=== PATIENT | male | born 1955 | race Caucasian/White ===

== ENCOUNTER 2020-05-05 10:43 | Observation (INO) ==
[2020-05-05] MEDS ORDERED: IOPAMIDOL 100 ML BOTTLE IV ONE (10:44)
[2020-05-05] MEDS ORDERED: 0.9 % SODIUM CHLORIDE 1,000 ML IV ONE (11:05)
[2020-05-05] MEDS ORDERED: HYDROmorphone 0.5 MG/0.5 ML SYRINGE IV ONE ×2 (11:05→12:36)
--- NOTE | 2020-05-05 11:12 | Emergency Department Note ---
Abdominal Pain HPI General Chief Complaint: Abdominal Pain Stated Complaint: stomach pain diarrhea Time Seen by Provider: 05/05/20 10:49 Source: patient Mode of arrival: ambulatory Limitations: no limitations History of Present Illness HPI Narrative: Narrative: 64-year-old male patient presents to the emergency dep artment chief complaint of worsening abdominal pain and persistent diarrhea. Patient was seen by the general surgeon (Dr. Bai) on 04/12 and diagnosed with postcholecystectomy syndrome. He was started on dicyclomine 20 mg 4 times daily. Unfortunately, patient mentions this is been unhelpful. His abdominal pain has waxed and waned but steadily increased over the last 48 hours. That he describes the pain as a sharp, stabbing type pain localized around his umbilicus. He admits to frequent nonbloody very watery diarrhea. He denies any associated nausea or vomiting. He denies any known exposure to the novel coronavirus. ROS: Denies systemic illness, fever, sweats, chills. Denies headaches, tinnitus, or vision changes. Denies runny nose, sinus congestion, or cough. Admits to mild shortness of breath that he associates with daily smoking.. Denies retrosternal chest pain or palpitations. Denies dysuria, hematuria, urinary frequency, or urinary urgency. Denies generalized or focal weakness. Related Data Home Medications Medication Instructions Recorded Confirmed calcium carbonate-vitamin D3 600 1 cap PO BID cap 12/11/14 05/05/20 mg calcium-200 unit capsule aspirin 81 mg tablet,delayed 81 mg PO QDAY 09/21/19 05/05/20 release Previous Rx's Medication Instructions Recorded simvastatin 20 mg tablet 20 mg PO HS #90 tab 08/02/19 testosterone cypionate 200 mg/mL 200 mg IM .COMPLEX #1 ml 08/18/19 intramuscular oil omeprazole magnesium 20 mg 20 mg PO QDAY #90 cap 10/11/19 capsule,delayed release levothyroxine 100 mcg tablet 100 mcg PO QDAY #30 tab 11/18/19 lisinopril 10 mg tablet 10 mg PO DAILY #90 tab 01/09/20 metformin 500 mg tablet 500 mg PO QDAY #90 tab 02/08/20 duloxetine 60 mg capsule,delayed 60 mg PO QAM #30 cap 03/12/20 release hydrocodone 5 mg-acetaminophen 325 1 tab PO Q8H PRN #20 tab MDD 2 10/27/20 mg tablet dicyclomine 20 mg tablet 20 mg PO QID #120 tab 04/12/20 Allergies Allergy/AdvReac Type Severity Reaction Status Date / Time aspirin AdvReac Severe Gastrointestinal Verified 05/01/20 10:09 Upset hydrochlorothiazide AdvReac Mild Fatigued Verified 05/01/20 10:09 morphine [From MS Contin] AdvReac Mild Itching Verified 05/01/20 10:09 Review of Systems ROS ROS Narrative: Narrative: All systems ED: reviewed and negative except as stated. 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) use of opiate analgesic (Chronic) Spondylosis without myelopathy or radiculopathy, lumbar region (Chronic) Chronic SI joint pain (Chronic) Depression determined by examination (Acute) Insomnia (Acute) Cellulitis (Acute) Cervical spondylosis (Acute) Cervical spine degeneration (Acute) COPD exacerbation (Acute) Opioid withdrawal (Acute) Thoracic back pain (Acute) Lumbar radiculopathy (Acute) Cholelithiasis with cholecystitis without obstruction (Acute) Back pain (Acute) Strain of lumbar region (Acute) Partial small bowel obstruction (Acute) Cholelithiasis (Acute) Chronic pain (Chronic) Toenail fungus (Chronic) Vitamin D deficiency (Chronic) Borderline diabetes mellitus (Chronic) Encounter for Health Maintenance Examination in Adult (Chronic) Varicose veins of lower extremity (Chronic) Urinary frequency (Chronic) Tobacco abuse (Chronic) Tinnitus (Chronic) Testicular hypofunction (Chronic) Osteoporosis (Chronic) Obesity (Chronic) Hypothyroidism (acquired) (Chronic) Essential hypertension (Chronic) Hyperlipidemia (Chronic) Umbilical hernia (Chronic) Hearing loss (Chronic) Esophageal reflux (Chronic) ED (erectile dysfunction) (Chronic) Depressive disorder (Chronic) Chronic back pain (Chronic) Benign prostatic hyperplasia (BPH) with urinary urgency (Chronic) Anxiety disorder (Chronic) Medical History Abdominal pain (Resolved) Anxiety disorder (Chronic) Axillary mass (Acute) Benign prostatic hyperplasia (BPH) with urinary urgency (Chronic) follows with Dr Rowell on medical management with tamsulosin and tadalafil Borderline diabetes mellitus (Chronic) Cellulitis of abdominal wall (Inactive) treat with bactrim and keflex x 10 days Chronic back pain (Chronic) follows with pain clinic. Maintained on Methadone and Oxycodone Chronic SI joint pain (Chronic) Depressive disorder (Chronic) Dermatitis (Inactive) ED (erectile dysfunction) (Chronic) Edema (Resolved) 02/12/2011 Encounter for Health Maintenance Examination in Adult (Chronic) [facility] Colonoscopy 2014, no polyps tdap 06/2015 pcv not indicated yet aaa not indicated yet psa needs annually, neg 2015 Epicondylitis (Inactive) Esophageal reflux (Chronic) Continue omeprazole 20 mg daily Essential hypertension (Chronic) 10/23/16 BP stable, continue lisinopril Fatigue (Resolved) 11/13/2014, labs neg, pt doing better now. Plan to monitor for now. Gastric ulcer (Inactive) 1991 - Hospitalized due to bleeding ulcer Hearing loss (Chronic) Hyperlipidemia (Chronic) Lipid levels at goal, HDL low, Continue fenofibrate and simvastatin Recheck lipid panel Every 6 months Hyperthyroidism (Inactive) History of 2002 - Iodine therapy Hypothyroidism (acquired) (Chronic) on levothyroxine 200 mcg continue same, patient is clinically euthyroid. 10/23/16 Recheck TSH today Knee pain (Inactive) 05/09/2014 half-way (current) use of opiate analgesic (Chronic) Lumbar spondylosis (Chronic) 07/10/2015-Lanie Obesity (Chronic) Osteoporosis (Chronic) Paget's bone disease (Acute) low back pain Prostatitis, acute (Inactive) 07/22/2013 Small bowel obstruction (Resolved) 03/2018 Spondylosis without myelopathy or radiculopathy, lumbar region (Chronic) Spondylosis without myelopathy or radiculopathy, lumbosacral region (Acute) Tear of lateral cartilage or meniscus of knee, current (Inactive) Testicular hypofunction (Chronic) testosterone inj, 200 mg IM q month, continue Thyroid disorder (Chronic) Tinnitus (Chronic) Tobacco abuse (Chronic) Patient to start on Chantix 07/25/16 08/23/16 pt unable to tolerate chantix, stopped it counselled on smoking cessation 3-5 minutes Toenail fungus (Chronic) Umbilical hernia (Chronic) Urinary frequency (Chronic) 05/16/2014 Varicose veins of lower extremity (Chronic) 01/23/2014 - Asymptomatic Vitamin D deficiency (Chronic) Surgical History History of colonoscopy (Inactive) 08/30/2014 History of inguinal hernia repair (Inactive) 01/09/2012 - Dr. Borges History of laparoscopic cholecystectomy (Acute) 09/17/2018 History of lumbar surgery (Inactive) History of surgery (Acute) MBB #1 Bilat L2-S1 w/sed 02/23/20 SI Joint Inj. Alcides. w/sed 02/06/2020 Intradiscal injection L4-5 w/sed (07/04/10) LESI #2 L4-5 w/sed (06-10-10) TF DAVID #1 (RT) L4-5 w/sed (05-23-10 Family History Unknown Family history of malignant neoplasm Social History Smoking Status: Current some day smoker Alcohol Intake Frequency: former alcohol drinker Substance Use: does not use Exam Narrative Narrative: Narrative: General Limitations: no limitations General appearance: Present other (Well-developed, well-nourished, 64-year-old male patient laying semirecumbent on the emergency room gurney obviously very uncomfortable. He is cradling his abdomen his hands. He is afebrile with, hypertensive blood pressure 142/101, all other vital signs the normal limits.) Head Head: Present normocephalic Eye Eye: Present normal appearance, PERRL and EOMI; Absent scleral icterus and conjunctival injection ENT ENT: Present normal oropharynx and mucous membranes moist Neck Neck: Present trachea midline; Absent lymphadenopathy Chest Chest: Present symmetric chest wall rise Respiratory Respiratory: Present normal lung sounds bilaterally; Absent respiratory distress, wheezes, stridor, accessory muscle use and prolonged expiratory phase Cardiovascular Cardiovascular: Present regular rate and normal rhythm; Absent systolic murmur and diastolic murmur Adbominal Abdominal: Present soft, tenderness and hyperactive bowel sounds; Absent distention, guarding, rebound, rigidity, organomegaly and mass Expanded Abdominal Abdominal Tenderness: Present diffuse and severe Extremities Extremities: Present normal inspection, full ROM and normal capillary refill; Absent pedal edema Back Back: Present normal inspection and full ROM; Absent CVA tenderness (R) and CVA tenderness (L) Neurological Neurological: Present alert and oriented X3 Psychiatric Psychiatric: Present normal affect and anxious Skin Skin: Present warm (WNL), dry and normal color Course Course Course Narrative: The differential diagnosis of diffuse abdominal pain in the adult patient is broad and includes the following: Bowel obstruction, perforation of the GI tract, acute/chronic mesenteric ischemia, abdominal aortic aneurysm (AAA), inflammatory bowel disease (ulcerative colitis/Crohn disease), viral gastroenteritis, spontaneous bacterial peritonitis, colorectal cancer, celiac disease, ketoacidosis, adrenal insufficiency, foodborne illness, IBS, constipation, diverticulosis, and lactose intolerance. Patient does have known history of abdominal pain and is recently been followed by our general surgeon (Dr. Bai). He was recently diagnosed with p ostcholecystectomy syndrome and started on dicyclomine. However, this has been ineffective in controlling his symptoms. He has had recurrent abdominal pain with the last 48 hours which is is exquisite and severe. He did have a CT scan of his abdomen done at the end of March that was read as normal. However, due to his recurrent symptoms and physical exam findings it seems prudent to reimage his abdomen with a contrast-enhanced CT scan today. I am going to order some screening laboratory studies. Patient was given Dilaudid 0.5 mg IVP to help with his abdominal pain. He was given normal saline 1000 mL as a bolus. Reevaluation(s) Reevaluation #1: A review of the patient's diagnostics show the following: CBC WBC 8.2, RBC 5.75, hemoglobin 18.9, hematocrit 53.5, platelets 205. Lactic acid 1.3. CMP glucose 121, all others the normal limits. Lipase 9. Abdominal CT scan pending. Upon reevaluation patient began to complain of worsening recurrent abdominal pain. He was given a second Dilaudid 0.5 mg IVP to help with this. Time: 13:00 Reevaluation #2: Contrast-enhanced CT scan of the abdomen/pelvis along a partial small bowel obstruction to the mid ileum due to adhesion or stricture. Radiologist mentions sigmoid diverticulosis but no evidence of diverticulitis. There is a 19 mm simple cyst at the superior pole the right kidney. There is moderate pancreatic atrophy with fat replacement of the head, neck, and proximal body. After reviewing all the data and I went discussed these findings the patient. He does have a partial small bowel obstruction that will need further treatment. Knowing this, I reached out to her general surgeon (Dr. Bai) discussed the case with him. Time: 13:32 Reevaluation #3: At this time the general surgeon mentioned that he would admit the patient here to the facility for ongoing evaluation and care. Knowing this, I went discussed the admission with the patient who verbalized understanding. At this time all further treatment decisions, modalities, and ultimate patient disposition will be carried out by the general surgeon. Vital Signs Vital signs: Vital Signs Temperature 97.9 F 05/05/20 10:46 Pulse Rate 90 05/05/20 10:46 Respiratory Rate 20 05/05/20 10:46 Blood Pressure 142/101 05/05/20 10:46 Pulse Oximetry (%) 98 05/05/20 10:46 Temperature 97.9 F 05/05/20 10:46 Pulse Rate 65 05/05/20 13:31 Respiratory Rate 20 05/05/20 10:46 Blood Pressure 158/101 05/05/20 13:31 Pulse Oximetry (%) 98 05/05/20 13:31 MDM MDM Narrative Medical decision making narrative: Narrative: Lab Data Lab results reviewed: Yes I reviewed the patient's lab results. Result diagrams: 05/05/20 11:21 05/05/20 11:21 Labs: Lab Results 05/05/20 05/05/20 05/05/20 Range/Units 11:21 11:21 11:21 WBC 8.2 (4.5-11.0) K/mcL RBC 5.75 (4.50-5.90) M/mcL Hgb 18.9 H (13.5-16.5) g/dL Hct 53.5 (41.0-55.0) % MCV 93.0 (80.0-100.0) fL MCH 32.9 (26.0-34.0) pg MCHC 35.3 (31.0-36.0) g/dL RDW 15.6 H (11.5-14.5) % Plt Count 205 (140-440) K/mcL MPV 10.3 (7.4-10.4) fL Neut % (Auto) 68.9 (38.0-78.0) % Lymph % (Auto) 19.7 (15.0-49.0) % [place] % (Auto) 8.4 (1.0-12.0) % Eos % (Auto) 2.4 (0.0-7.0) % Baso % (Auto) 0.6 (0.0-2.0) % Lymph # (Auto) 1.62 (1.50-4.80) K/mcL [place] # (Auto) 0.69 (0.10-0.90) K/mcL Eos # (Auto) 0.20 (0.00-0.70) K/mcL Baso # (Auto) 0.05 (0.00-0.20) K/mcL Absolute Neutrophils 5.67 (1.80-8.00) K/mcL VBG Lactic Acid 1.3 (0.5-2.0) mmol/L Sodium 137 (133-145) mmol/L Potassium 3.9 (3.3-5.1) mmol/L Chloride 103 (96-108) mmol/L Carbon Dioxide 22 (22-30) mmol/L Anion Gap 12.0 (8.0-16.0) BUN 13 (8-23) mg/dL Creatinine 0.8 (0.7-1.2) mg/dL POC Creatinine 0.8 (0.6-1.2) mg/dL GFR Calculation 93 Glucose 121 H (70-105) mg/dL Calcium 9.9 (8.6-10.4) mg/dL Total Bilirubin 0.5 (0.1-1.0) mg/dL AST 25 (<40) U/L ALT 24 (<40) U/L Alkaline Phosphatase 67 (39-117) U/L C-Reactive Protein (0.03-0.80) mg/dL Total Protein 7.3 (5.9-8.4) gm/dL Albumin 4.6 (3.2-5.2) gm/dL Globulin 2.7 (2.2-3.7) gm/dL Albumin/Globulin Ratio 1.7 (1.0-2.3) Lipase 9 (7-60) U/L 11/21/20 Range/Units 11:21 WBC (4.5-11.0) K/mcL RBC (4.50-5.90) M/mcL Hgb (13.5-16.5) g/dL Hct (41.0-55.0) % MCV (80.0-100.0) fL MCH (26.0-34.0) pg MCHC (31.0-36.0) g/dL RDW (11.5-14.5) % Plt Count (140-440) K/mcL MPV (7.4-10.4) fL Neut % (Auto) (38.0-78.0) % Lymph % (Auto) (15.0-49.0) % [place] % (Auto) (1.0-12.0) % Eos % (Auto) (0.0-7.0) % Baso % (Auto) (0.0-2.0) % Lymph # (Auto) (1.50-4.80) K/mcL [place] # (Auto) (0.10-0.90) K/mcL Eos # (Auto) (0.00-0.70) K/mcL Baso # (Auto) (0.00-0.20) K/mcL Absolute Neutrophils (1.80-8.00) K/mcL VBG Lactic Acid (0.5-2.0) mmol/L Sodium (133-145) mmol/L Potassium (3.3-5.1) mmol/L Chloride (96-108) mmol/L Carbon Dioxide (22-30) mmol/L Anion Gap (8.0-16.0) BUN (8-23) mg/dL Creatinine (0.7-1.2) mg/dL POC Creatinine (0.6-1.2) mg/dL GFR Calculation Glucose (70-105) mg/dL Calcium (8.6-10.4) mg/dL Total Bilirubin (0.1-1.0) mg/dL AST (<40) U/L ALT (<40) U/L Alkaline Phosphatase (39-117) U/L C-Reactive Protein 0.30 (0.03-0.80) mg/dL Total Protein (5.9-8.4) gm/dL Albumin (3.2-5.2) gm/dL Globulin (2.2-3.7) gm/dL Albumin/Globulin Ratio (1.0-2.3) Lipase (7-60) U/L Radiology Data Radiology results reviewed: Yes I reviewed the patient's radiology results. Radiology results narrative: Ordering Physician: Ken Ramirez PA-C Date of Service: 05/05/20 Procedure(s): CT abdomen pelvis w con Accession Number(s): [id number] CLINICAL INFORMATION: Abdominal pain COMPARISON: 04/14/[address] TECHNIQUE: Following enteric contrast, 80 cc of Isovue-370 were injected intravenously, and 60 seconds later, 0.625 mm helical slices were obtained from the mid heart through the subtrochanteric regions. Following reconstruction, 2.5 mm sagittal, coronal and axial reformatted images were processed and reviewed at bone, lung and soft tissue windows. Five minutes later, 0.625 mm helical slices were obtained from the mid heart through the kidneys and viewed at soft tissue windows.The exam was performed using radiation dose optimization techniques including, but not limited to, automated exposure control, adjustment of the mA and/or kV according to patient size and use of iterative reconstruction technique. FINDINGS: Lung bases minimal wall thickening and slight dilatation of bronchi suggesting chronic bronchitis and scattered scarring. No infiltrates and no effusions. The visualized heart is unremarkable. Images through the abdomen show minimal fatty change within the liver, but no focal hepatic lesions. The gallbladder is surgically absent. The CBD is normal: 5 mm. Moderate pancreatic atrophy is unchanged: There is fat replacement in the head, neck and proximal body. A 19 mm simple cyst the superior pole the right kidney is stable. The remainder of both kidneys, adrenal glands, spleen and aorta, including aortic branches, are normal in size, configuration and attenuation without focal lesion. Images through the pelvis show prostate, seminal vesicles and urinary bladder to be normal. Sigmoid diverticulosis again noted, but no evidence of diverticulitis. The remainder of the colon and appendix are unremarkable. The stomach, small bowel are mildly dilated to transition point the anterior central false pelvis on coronal image 58 and axial image 126. There appears to be a stricture or adhesion in this region. Distal small bowel is relatively decompressed. Findings the bowel partial small bowel obstruction the mid ileum There is no free air, free fluid and no adenopathy. Bone windows show no focal osseous abnormality. IMPRESSION: 1. Partial small bowel obstruction in the mid ileum due to adhesion or stricture. 2. Sigmoid diverticulosis. No CT evidence for diverticulitis. Mild diverticulitis may be CT occult however 3. 19 mm simple cyst in the superior pole of the right kidney - stable since the 2018 CT 4. Moderate pancreatic atrophy with fat replacement of the head neck and proximal body parenchyma - no change Interpreted and Authenticated by: Yony Mcneil 05/05/20 Discharge Plan Patient/Caregiver Discharge Instructions Pt seen by SALON SUPERVISOR/PA only: Yes Clinical Impression: Partial small bowel obstruction Patient Disposition: Xfer As Outpt/Obs ([facility]) Condition: Good Follow up with: Kiki Kilgore DO [Primary Care Provider] - Prescriptions: No Action simvastatin 20 mg tablet 20 mg PO HS Qty: 90 RF: 2 testosterone cypionate [Depo-Testosterone] 200 mg/mL oil 200 mg IM .COMPLEX Qty: 1 RF: 0 aspirin [Adult Low Dose Aspirin] 81 mg tablet,delayed release (DR/EC) 81 mg PO QDAY RF: 0 omeprazole magnesium 20 mg capsule,delayed release(DR/EC) 20 mg PO QDAY Qty: 90 RF: 2 levothyroxine 100 mcg tablet 100 mcg PO QDAY Qty: 30 RF: 3 lisinopril 10 mg tablet 10 mg PO DAILY Qty: 90 RF: 1 metformin 500 mg tablet 500 mg PO QDAY Qty: 90 RF: 0 duloxetine 60 mg capsule,delayed release(DR/EC) 60 mg PO QAM Qty: 30 RF: 4 hydrocodone-acetaminophen 5-325 mg tablet 1 tab PO Q8H MDD 2 PRN (Reason: pain) Qty: 20 RF: 0 calcium carbonate-vitamin D3 600 mg calcium- 200 unit capsule 1 cap PO BID RF: 0 dicyclomine 20 mg tablet 20 mg PO QID Qty: 120 RF: 5
[2020-05-05 11:36] LABS: POC Creatinine 0.8 mg/dL (0.6-1.2)
[2020-05-05 12:06] LABS: Basophils # (Auto) 0.05 K/mcL (0.00-0.20); Basophils % (Auto) 0.6 % (0.0-2.0); Eosinophils % (Auto) 2.4 % (0.0-7.0); Hematocrit 53.5 % (41.0-55.0); Hemoglobin 18.9 g/dL (13.5-16.5); Lymphocytes # (Auto) 1.62 K/mcL (1.50-4.80); Lymphocytes % (Auto) 19.7 % (15.0-49.0); Mean Corpuscular HGB Conc 35.3 g/dL (31.0-36.0); Mean Platelet Volume 10.3 fL (7.4-10.4); Monocytes # (Auto) 0.69 K/mcL (0.10-0.90); Monocytes % (Auto) 8.4 % (1.0-12.0); Neutrophils % (Auto) 68.9 % (38.0-78.0); Platelet Count 205 K/mcL (140-440); RBC 5.75 M/mcL (4.50-5.90); Red Cell Distribution Width 15.6 % (11.5-14.5); WBC 8.2 K/mcL (4.5-11.0)
[2020-05-05 12:27] LABS: ALT/SGPT 24 U/L (<40); AST/SGOT 25 U/L (<40); Albumin 4.6 gm/dL (3.2-5.2); Albumin/Globulin Ratio 1.7 (1.0-2.3); Alkaline Phosphatase 67 U/L (39-117); Bilirubin,Total 0.5 mg/dL (0.1-1.0); Blood Urea Nitrogen 13 mg/dL (8-23); Calcium 9.9 mg/dL (8.6-10.4); Carbon Dioxide 22 mmol/L (22-30); Chloride 103 mmol/L (96-108); Globulin 2.7 gm/dL (2.2-3.7); Glomerular Filtration Rate 93; Glucose 121 mg/dL (70-105)
--- NOTE | 2020-05-05 13:15 | Cat Scan Report ---
CLINICAL INFORMATION: Abdominal pain COMPARISON: 04/14/[address] TECHNIQUE: Following enteric contrast, 80 cc of Isovue-370 were injected intravenously, and 60 seconds later, 0.625 mm helical slices were obtained from the mid heart through the subtrochanteric regions. Following reconstruction, 2.5 mm sagittal, coronal and axial reformatted images were processed and reviewed at bone, lung and soft tissue windows. Five minutes later, 0.625 mm helical slices were obtained from the mid heart through the kidneys and viewed at soft tissue windows.The exam was performed using radiation dose optimization techniques including, but not limited to, automated exposure control, adjustment of the mA and/or kV according to patient size and use of iterative reconstruction technique. FINDINGS: Lung bases minimal wall thickening and slight dilatation of bronchi suggesting chronic bronchitis and scattered scarring. No infiltrates and no effusions. The visualized heart is unremarkable. Images through the abdomen show minimal fatty change within the liver, but no focal hepatic lesions. The gallbladder is surgically absent. The CBD is normal: 5 mm. Moderate pancreatic atrophy is unchanged: There is fat replacement in the head, neck and proximal body. A 19 mm simple cyst the superior pole the right kidney is stable. The remainder of both kidneys, adrenal glands, spleen and aorta, including aortic branches, are normal in size, configuration and attenuation without focal lesion. Images through the pelvis show prostate, seminal vesicles and urinary bladder to be normal. Sigmoid diverticulosis again noted, but no evidence of diverticulitis. The remainder of the colon and appendix are unremarkable. The stomach, small bowel are mildly dilated to transition point the anterior central false pelvis on coronal image 58 and axial image 126. There appears to be a stricture or adhesion in this region. Distal small bowel is relatively decompressed. Findings the bowel partial small bowel obstruction the mid ileum There is no free air, free fluid and no adenopathy. Bone windows show no focal osseous abnormality. IMPRESSION: 1. Partial small bowel obstruction in the mid ileum due to adhesion or stricture. 2. Sigmoid diverticulosis. No CT evidence for diverticulitis. Mild diverticulitis may be CT occult however 3. 19 mm simple cyst in the superior pole of the right kidney - stable since the 2018 CT 4. Moderate pancreatic atrophy with fat replacement of the head neck and proximal body parenchyma - no change Interpreted and Authenticated by: Yony Mcneil 05/05/20
[2020-05-05] MEDS ORDERED: PROMETHAZINE 25 MG/ML VIAL IV PRN (13:36)
[2020-05-05] MEDS ORDERED: ONDANSETRON 4 MG/2 ML VIAL IV PRN (13:36)
[2020-05-05] MEDS: HYDROmorphone 0.5 MG/0.5 ML SYRINGE IV PRN ×3 (14:45→20:15)
[2020-05-05] MEDS: 0.9 % SODIUM CHLORIDE 1,000 ML IV SCH ×2 (14:46→22:49)
[2020-05-05] MEDS: 0.9 % SODIUM CHLORIDE 10 ML SYRINGE IV SCH ×2 (14:46→23:06)
--- NOTE | 2020-05-05 14:52 | General Surg History&Physical ---
HPI History of Present Illness Patient information: Note initiated : 05/05/20 at 2:37 pm Service Date, if different from initiated Date: [] Patient: Gordon Bynum 64 y/o M admitted on 05/05/20 for stomach pain diarrhea. Chief Complaint: [] Chief complaint: recurrent abdominal pain with diarrhea History of present illness: Mr. Bynum is a 64 year old M is admitted for evaluation of recurrent abdominal pain and episodic diarrhea. The patient was seen in the office on 04/12/2020. At that time he complained of postprandial diarrhea with chronic nocturnal gas. He relates onset 2, gallbladder surgery in September 2019. Patient has severe postprandial diarrhea. He has 45 bowel movements per day which are watery. He has not had rectal bleeding. He was started on dicyclomine but states that symptoms have not improved. He is still having watery stools large-volume flatus. He has not had any fever or chills. CT of the abdomen was stated to show partial small bowel obstruction However, clinical history is not compatible diagnosis. Because of uncontrolled pain Patient is admitted and will have follow-up evaluation.. Constitutional Constitutional: Present anorexia, fatigue and malaise EENT Eyes: Absent change in vision, loss of vision and pain Ears: Absent decreased hearing Nose, mouth and throat: Absent abnormal hearing, dysphagia, headache(s) and hoarseness Cardiovascular Cardiovascular: Present dyspnea on exertion and palpatations; Absent dyspnea Respiratory Respiratory: Present cough Gastrointestinal Gastrointestinal: Present abdominal pain, bloating, change in bowel habits, cramping, diarrhea, excessive flatus, loose stools and nausea Genitourinary Genitourinary: urinary frequency, urinary hesitancy and urinary urgency Musculoskeletal Musculoskeletal: Absent arthralgias, back pain, myalgias and neck pain Integumentary Integumentary: Present pruritus; Absent changing lesions Neurological Neurological: Absent dizziness, syncope, tingling and tremor(s) Psychiatric Psychiatric: Absent depression Endocrine Endocrine: Present palpitations Hematologic/Lymphatic Hematologic/Lymphatic: Absent easy bleeding, easy bruising and lymphadenopathy Allergic/Immunologic Allergic/Immunologic: Absent tongue swelling, throat swelling, uticaria, wheezing and lip swelling PFSH PFSH All Active Problems (Updated 05/05/20 @ 14:49 by Keri Bai MD) Chronic obstructive lung disease (Acute) Partial small bowel obstruction (Acute) Axillary mass (Acute) Post-cholecystectomy syndrome (Acute) Postprandial diarrhea (Acute) Spondylosis without myelopathy or radiculopathy, lumbosacral region (Acute) History of surgery (Acute) 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) use of opiate analgesic (Chronic) Spondylosis without myelopathy or radiculopathy, lumbar region (Chronic) Chronic SI joint pain (Chronic) Depression determined by examination (Acute) Insomnia (Acute) Cellulitis (Acute) Cervical spondylosis (Acute) Cervical spine degeneration (Acute) COPD exacerbation (Acute) Opioid withdrawal (Acute) Thoracic back pain (Acute) Lumbar radiculopathy (Acute) Cholelithiasis with cholecystitis without obstruction (Acute) Back pain (Acute) Strain of lumbar region (Acute) Partial small bowel obstruction (Acute) Cholelithiasis (Acute) Chronic pain (Chronic) Toenail fungus (Chronic) Vitamin D deficiency (Chronic) Borderline diabetes mellitus (Chronic) Encounter for Health Maintenance Examination in Adult (Chronic) Varicose veins of lower extremity (Chronic) Urinary frequency (Chronic) Tobacco abuse (Chronic) Tinnitus (Chronic) Testicular hypofunction (Chronic) Osteoporosis (Chronic) Obesity (Chronic) Hypothyroidism (acquired) (Chronic) Essential hypertension (Chronic) Hyperlipidemia (Chronic) Umbilical hernia (Chronic) Hearing loss (Chronic) Esophageal reflux (Chronic) ED (erectile dysfunction) (Chronic) Depressive disorder (Chronic) Chronic back pain (Chronic) Benign prostatic hyperplasia (BPH) with urinary urgency (Chronic) Anxiety disorder (Chronic) Medical History Abdominal pain (Resolved) Anxiety disorder (Chronic) Axillary mass (Acute) Benign prostatic hyperplasia (BPH) with urinary urgency (Chronic) follows with Dr Rowell on medical management with tamsulosin and tadalafil Borderline diabetes mellitus (Chronic) Cellulitis of abdominal wall (Inactive) treat with bactrim and keflex x 10 days Chronic back pain (Chronic) follows with pain clinic. Maintained on Methadone and Oxycodone Chronic SI joint pain (Chronic) Depressive disorder (Chronic) Dermatitis (Inactive) ED (erectile dysfunction) (Chronic) Edema (Resolved) 02/12/2011 Encounter for Health Maintenance Examination in Adult (Chronic) HM Colonoscopy 2014, no polyps tdap 06/2015 pcv not indicated yet aaa not indicated yet psa needs annually, neg 2016 Epicondylitis (Inactive) Esophageal reflux (Chronic) Continue omeprazole 20 mg daily Essential hypertension (Chronic) 10/23/16 BP stable, continue lisinopril Fatigue (Resolved) 11/13/2014, labs neg, pt doing better now. Plan to monitor for now. Gastric ulcer (Inactive) 1991 - Hospitalized due to bleeding ulcer Hearing loss (Chronic) Hyperlipidemia (Chronic) Lipid levels at goal, HDL low, Continue fenofibrate and simvastatin Recheck lipid panel Every 6 months Hyperthyroidism (Inactive) History of 2002 - Iodine therapy Hypothyroidism (acquired) (Chronic) on levothyroxine 200 mcg continue same, patient is clinically euthyroid. 10/23/16 Recheck TSH today Knee pain (Inactive) 05/09/2014 correction (current) use of opiate analgesic (Chronic) Lumbar spondylosis (Chronic) 07/10/2015-Lanie Obesity (Chronic) Osteoporosis (Chronic) Paget's bone disease (Acute) low back pain Prostatitis, acute (Inactive) 07/22/2013 Small bowel obstruction (Resolved) 03/2018 Spondylosis without myelopathy or radiculopathy, lumbar region (Chronic) Spondylosis without myelopathy or radiculopathy, lumbosacral region (Acute) Tear of lateral cartilage or meniscus of knee, current (Inactive) Testicular hypofunction (Chronic) testosterone inj, 200 mg IM q month, continue Thyroid disorder (Chronic) Tinnitus (Chronic) Tobacco abuse (Chronic) Patient to start on Chantix 07/25/16 08/23/16 pt unable to tolerate chantix, stopped it counselled on smoking cessation 3-5 minutes Toenail fungus (Chronic) Umbilical hernia (Chronic) Urinary frequency (Chronic) 05/16/2014 Varicose veins of lower extremity (Chronic) 01/23/2014 - Asymptomatic Vitamin D deficiency (Chronic) Surgical History History of colonoscopy (Inactive) 08/30/2014 History of inguinal hernia repair (Inactive) 01/09/2012 - Dr. Borges History of laparoscopic cholecystectomy (Acute) 09/17/2018 History of lumbar surgery (Inactive) History of surgery (Acute) MBB #1 Bilat L2-S1 w/sed 02/23/20 SI Joint Inj. Alcides. w/sed 02/06/2020 Intradiscal injection L4-5 w/sed (07/04/10) LESI #2 L4-5 w/sed (06-10-10) TF DAVID #1 (RT) L4-5 w/sed (05-23-10 Family History Unknown Family history of malignant neoplasm Social History marital status: smoking status: Current some day smoker tobacco type: cigarettes per day: 2 pack-years: 45 alcohol intake frequency: former alcohol drinker substance use type: does not use MEDS/ALLERGIES Home Medications and Allergies Home Medications Medication Instructions Recorded Confirmed Type calcium carbonate-vitamin D3 600 1 cap PO BID cap 12/11/14 05/05/20 History mg calcium-200 unit capsule simvastatin 20 mg tablet 20 mg PO HS #90 tab 08/02/19 05/05/20 Rx testosterone cypionate 200 mg/mL 200 mg IM .COMPLEX #1 ml 08/18/19 05/05/20 Rx intramuscular oil aspirin 81 mg tablet,delayed 81 mg PO QDAY 09/21/19 05/05/20 History release omeprazole magnesium 20 mg 20 mg PO QDAY #90 cap 10/11/19 05/05/20 Rx capsule,delayed release levothyroxine 100 mcg tablet 100 mcg PO QDAY #30 tab 11/18/19 05/05/20 Rx lisinopril 10 mg tablet 10 mg PO DAILY #90 tab 01/09/20 05/05/20 Rx metformin 500 mg tablet 500 mg PO QDAY #90 tab 02/08/20 05/05/20 Rx duloxetine 60 mg capsule,delayed 60 mg PO QAM #30 cap 03/12/20 05/05/20 Rx release dicyclomine 20 mg tablet 20 mg PO QID #120 tab 04/12/20 05/05/20 Rx Allergies Allergy/AdvReac Type Severity Reaction Status Date / Time aspirin AdvReac Severe Gastrointestinal Verified 05/01/20 10:09 Upset hydrochlorothiazide AdvReac Mild Fatigued Verified 05/01/20 10:09 morphine [From MS Contin] AdvReac Mild Itching Verified 05/01/20 10:09 Physical Examination Vital Signs Vital signs: Temp Pulse Resp BP Pulse Ox 97.9 F 65 20 158/101 98 05/05/20 14:15 05/05/20 14:15 05/05/20 14:15 05/05/20 14:15 05/05/20 14:15 General physical appearance General physical exam: well developed, well nourished, no distress and moderate pain Eyes Eye exam: PERRL and normal ocular movement ENT ENT exam: normal pinna, normal nares, normal mucosa and no hearing loss Head Head exam IM: Present atraumatic, normal inspection and normocephalic Neck Neck exam: no masses, no bruits, trachea midline, no lymphadenopathy and no venous distension Cardiovascular Cardiovascular exam IM: Present normal rate and rhythm, RRR, +S1 and +S2; Absent gallop, irregular rhythm and JVD Respiratory Respiratory exam: normal expansion, normal respiratory effort and clear to auscultation Abdomen Abdomen: Present soft and tender; Absent guarding and distended Integumentary Integumentary: Present no rash, no growths and no abnormal pigmentation Neurologic Neurologic: Present normal coordination, normal sensation, deep tendon reflexes and other; Absent disoriented, combative, confused and memory loss Musculoskeletal Musculoskeletal: Present normal gait and normal posture Psychiatric Psychiatric: Present oriented to time, oriented to person, oriented to place, speech is normal and memory intact Results Labs Result diagrams: 05/05/20 11:21 05/05/20 11:21 Labs: Abnormal lab results 05/05/20 05/05/20 Range/Units 11:21 11:21 Hgb 18.9 H (13.5-16.5) g/dL RDW 15.6 H (11.5-14.5) % Glucose 121 H (70-105) mg/dL Diabetes panel 05/05/20 Range/Units 11:21 Sodium 137 (133-145) mmol/L Potassium 3.9 (3.3-5.1) mmol/L Chloride 103 (96-108) mmol/L Carbon Dioxide 22 (22-30) mmol/L BUN 13 (8-23) mg/dL Creatinine 0.8 (0.7-1.2) mg/dL Glucose 121 H (70-105) mg/dL Calcium 9.9 (8.6-10.4) mg/dL AST 25 (<40) U/L ALT 24 (<40) U/L Alkaline Phosphatase 67 (39-117) U/L Total Protein 7.3 (5.9-8.4) gm/dL Albumin 4.6 (3.2-5.2) gm/dL Calcium panel 05/05/20 Range/Units 11:21 Calcium 9.9 (8.6-10.4) mg/dL Albumin 4.6 (3.2-5.2) gm/dL Pituitary panel 05/05/20 Range/Units 11:21 Sodium 137 (133-145) mmol/L Potassium 3.9 (3.3-5.1) mmol/L Chloride 103 (96-108) mmol/L Carbon Dioxide 22 (22-30) mmol/L BUN 13 (8-23) mg/dL Creatinine 0.8 (0.7-1.2) mg/dL Glucose 121 H (70-105) mg/dL Calcium 9.9 (8.6-10.4) mg/dL Adrenal panel 05/05/20 Range/Units 11:21 Sodium 137 (133-145) mmol/L Potassium 3.9 (3.3-5.1) mmol/L Chloride 103 (96-108) mmol/L Carbon Dioxide 22 (22-30) mmol/L BUN 13 (8-23) mg/dL Creatinine 0.8 (0.7-1.2) mg/dL Glucose 121 H (70-105) mg/dL Calcium 9.9 (8.6-10.4) mg/dL Total Bilirubin 0.5 (0.1-1.0) mg/dL AST 25 (<40) U/L ALT 24 (<40) U/L Alkaline Phosphatase 67 (39-117) U/L Total Protein 7.3 (5.9-8.4) gm/dL Albumin 4.6 (3.2-5.2) gm/dL All other labs normal. A/P Assessment and plan (1) Post-cholecystectomy syndrome: Status: Acute (2) Postprandial diarrhea: Status: Acute (3) Chronic obstructive lung disease: Status: Acute Qualifiers: COPD type: chronic bronchitis Chronic bronchitis type: simple Qualified Code(s): J41.0 - Simple chronic bronchitis (4) Essential hypertension: Status: Chronic Comment: 10/23/16 BP stable, continue lisinopril Narrative A/P Narrative: CT suggests possible intestinal obstruction. However, patient is having multiple bowel movements, large volume of flatus multiple times per day Since the dicyclomine isn't effective, will be discontinued and patient will be started on cholestyramine. Small bowel follow-through may be done if this is not effective. Time Spent With Patient Time: Total time spent is greater than 50% in coordination of care (as documented) at patient's floor/unit and/or counseling patient:
[2020-05-05] MEDS: CHOLESTYRAMINE/ASPARTAME 4 GM POWD.PACK PO SCH (20:10)
[2020-05-05] MEDS: SENNOSIDES 1 TABLET PO SCH (20:10)
[2020-05-06] MEDS: HYDROmorphone 0.5 MG/0.5 ML SYRINGE IV PRN ×5 (00:38→18:08)
[2020-05-06] MEDS: 0.9 % SODIUM CHLORIDE 1,000 ML IV SCH ×4 (06:37→21:00)
[2020-05-06] MEDS: 0.9 % SODIUM CHLORIDE 10 ML SYRINGE IV SCH ×3 (06:37→20:05)
[2020-05-06] MEDS: OMEPRAZOLE 20 MG CAPSULE PO SCH (06:57)
[2020-05-06] MEDS: LEVOTHYROXINE 100 MCG TABLET PO SCH (06:57)
[2020-05-06 06:58] LABS: Basophils # (Auto) 0.06 K/mcL (0.00-0.20); Basophils % (Auto) 0.8 % (0.0-2.0); Eosinophils # (Auto) 0.31 K/mcL (0.00-0.70); Eosinophils % (Auto) 4.1 % (0.0-7.0); Hemoglobin 17.3 g/dL (13.5-16.5); Lymphocytes # (Auto) 2.38 K/mcL (1.50-4.80); Lymphocytes % (Auto) 31.8 % (15.0-49.0); Mean Cell Volume 95.5 fL (80.0-100.0); Mean Corpuscular HGB Conc 35.3 g/dL (31.0-36.0); Mean Platelet Volume 9.4 fL (7.4-10.4); Monocytes # (Auto) 0.66 K/mcL (0.10-0.90); Monocytes % (Auto) 8.8 % (1.0-12.0); Neutrophils % (Auto) 54.5 % (38.0-78.0); Platelet Count 194 K/mcL (140-440); RBC 5.13 M/mcL (4.50-5.90); Red Cell Distribution Width 15.9 % (11.5-14.5); WBC 7.5 K/mcL (4.5-11.0)
[2020-05-06 07:20] LABS: ALT/SGPT 21 U/L (<40); AST/SGOT 20 U/L (<40); Albumin/Globulin Ratio 1.7 (1.0-2.3); Alkaline Phosphatase 57 U/L (39-117); Bilirubin,Direct < 0.2 mg/dL (<0.3); Bilirubin,Total 0.5 mg/dL (0.1-1.0); Blood Urea Nitrogen 7 mg/dL (8-23); Calcium 8.3 mg/dL (8.6-10.4); Carbon Dioxide 23 mmol/L (22-30); Chloride 105 mmol/L (96-108); Globulin 2.3 gm/dL (2.2-3.7); Glomerular Filtration Rate 98; Glucose 98 mg/dL (70-105); Lactate Dehydrogenase 156 U/L (135-225); Phosphorous 1.8 mg/dL (2.5-4.5); Triglycerides 98 mg/dL (<150); Uric Acid 4.8 mg/dL (2.5-8.0)
--- NOTE | 2020-05-06 08:02 | XRay Report ---
CLINICAL INFORMATION: follow-up of adynamic ileus COMPARISON: 04/14/2018 FINDINGS: Stool gas pattern is normal. No free air, soft tissue mass organomegaly or pathologic calcification. IMPRESSION: Normal exam Interpreted and Authenticated by: Yony Mcneil 05/06/20
[2020-05-06] MEDS: LISINOPRIL 10 MG TABLET PO SCH (08:53)
[2020-05-06] MEDS: DULoxetine 30 MG CAPSULE PO SCH (08:53)
[2020-05-06] MEDS: CHOLESTYRAMINE/ASPARTAME 4 GM POWD.PACK PO SCH ×2 (10:04→19:51)
--- NOTE | 2020-05-06 13:20 | General Surgery Progress Note ---
SUBJECTIVE Subjective Patient information: Note initiated : 05/06/20 at 1:13 pm Service Date, if different from initiated Date: [] Patient: Gordon Bynum 64 y/o M admitted on 05/05/20 for stomach pain diarrhea. Chief Complaint: [] Principal diagnosis: recurrent abdominal pain; adynamic ileus and diarrhea Interval history: patient states that he feels much better. He has only had 1 loose stool since admission. He has not had the watery diarrhea that he had prior to admission. Stool shows no white blood cells. White blood count 7.5. CRP 0.3. Abdominal x-rays shows decrease in distention of small bowel with increase gas in his large intestines. Constitutional Vitals: Vital Signs Temp Pulse Resp BP Pulse Ox 98.2 F 70 16 135/86 95 05/06/20 12:00 05/06/20 12:00 05/06/20 12:00 05/06/20 12:00 05/06/20 12:00 Period Temp Pulse Resp BP Sys/Barr Pulse Ox Last 24 Hr 97.6 F-98.5 F 62-75 16-20 124-160/78-101 95-98 Intake and Output 05/05/20 05/06/20 05/06/20 21:59 05:59 13:59 Intake Total 950 1100 1000 Balance 950 1100 1000 Weight 185 lb 8 oz Intake & Output: Intake & Output 05/05/20 05/06/20 05/06/20 21:59 05:59 13:59 Intake Total 950 1100 1000 Balance 950 1100 1000 Weight 185 lb 8 oz Intake: IV 1000 1000 Sodium Chloride 0.9% 1,000 ml @ 1000 1000 125 mls/hr IV .Q8H [facility] Rx#: [id number] Oral 950 100 Other: Meal Dinner Breakfast Percent of Meal Consumed 100% 50% Feeding Ability Independent Stool Size Small Stool Color Brown Stool Consistency Loose # Voids 1 1 3 # Bowel Movements 1 # of times incontinent of 1 Bowels Head Head exam: Present atraumatic, normal inspection and normocephalic Eye Eye exam: Present EOMI and PERRL Pupils: Present PERRL ENT ENT exam: Present mucous membranes moist Neck Neck exam: Present full ROM and normal inspection Respiratory Respiratory exam: Present normal respiratory exam and CTAB; Absent rales, rhonchi and wheezes Cardiovascular Cardiovascular exam: Present normal rate and rhythm, +S1 and +S2; Absent gallop and JVD GI/Abdominal GI/Abdominal exam: Present normal bowel sounds, soft and distended (mild distention) Extremities Exam Extremities exam: Present full ROM and neurovascular intact Neurological Exam Neurological exam: Present alert, CN II-XII intact, normal gait, oriented X3 and reflexes normal; Absent motor sensory deficit Psychiatric Psychiatric exam: Present normal affect and normal mood A/P Assessment and plan (1) Postprandial diarrhea: Status: Acute (2) Partial small bowel obstruction: Status: Acute (3) Adynamic ileus: Status: Acute (4) Post-cholecystectomy syndrome: Status: Acute Narrative A/P Narrative: patient will be started carbohydrate concentrated diet. He will be continued off metformin Probable discharge tomorrow Time Spent With Patient Time: Total time spent is greater than 50% in coordination of care (as documented) at patient's floor/unit and/or counseling patient:
[2020-05-06] MEDS: SENNOSIDES 1 TABLET PO SCH (19:51)
[2020-05-07] MEDS: 0.9 % SODIUM CHLORIDE 10 ML SYRINGE IV SCH (04:45)
[2020-05-07] MEDS: 0.9 % SODIUM CHLORIDE 1,000 ML IV SCH ×3 (04:45→13:37)
[2020-05-07] MEDS: HYDROmorphone 0.5 MG/0.5 ML SYRINGE IV PRN ×4 (05:25→13:36)
[2020-05-07] MEDS: CHOLESTYRAMINE/ASPARTAME 4 GM POWD.PACK PO SCH (06:39)
[2020-05-07] MEDS: OMEPRAZOLE 20 MG CAPSULE PO SCH (09:02)
[2020-05-07] MEDS: DULoxetine 30 MG CAPSULE PO SCH (09:02)
[2020-05-07] MEDS: LISINOPRIL 10 MG TABLET PO SCH (09:03)
[2020-05-07] MEDS: LEVOTHYROXINE 100 MCG TABLET PO SCH (09:03)
--- NOTE | 2020-05-07 13:47 | Discharge Summary ---
Discharge Provider Provider Patient information: Note initiated : 05/07/20 at 1:38 pm Service Date, if different from initiated Date: [] Patient: Gordon Bynum 64 y/o M admitted on 05/05/20 for stomach pain diarrhea. Chief Complaint: [] Date of admission: 05/05/20 14:18 Discharge date: 05/07/20 Primary care physician: Kiki Kilgore DO Admitting clinician: Keri Bai Attending physician on admission: Keri Bai Consults: 05/05/20 Consult to Physician [CONS] Stat Comment: Consulting Provider: Keri Bai Reason For Exam: Physician to Consult Attending physician on discharge: Keri Bai Discharging clinician: Keri Bai COURSE Hospital Course Hospital course: 64-year-old male admitted for evaluation of recurrent abdominal pain and diarrhea. He was evaluated in the office on 04/12/2020. He was complaining of postprandial diarrhea and chronic nocturnal gas at that time. He relates his symptoms to gallbladder surgery which was performed in September 2019. He has severe postprandial diarrhea with at least 5 bowel movements per day. He was started on dicyclomine but his symptoms do not improve. He now complains of watery stools and large volume of flatus. CT of the abdomen suggests partial intestinal obstruction. He was admitted for control of symptoms and continued follow-up evaluation. The dicyclomine was discontinued as well as the metformin. He was started on cholestyramine. The patient had improvement in symptoms, though he still has some discomfort. He does not have evidence of obstruction. Discharge diagnosis: postcholecystectomy syndrome Secondary discharge diagnosis: postprandial diarrhea, chronic obstructive lung disease essential hypertension Reason for admission: recurrent abdominal pain and diarrhea Procedures: none Pertinent studies/significant findings: CT of abdomen and pelvis with contrast Complications: none Time Spent with Patient Time attestation: Total time spent providing and/or coordinating discharge services: Physical Examination Vital Signs Vital signs: Temp Pulse Resp BP Pulse Ox 97.4 F 61 20 151/95 96 05/07/20 07:06 05/07/20 07:06 05/07/20 07:06 05/07/20 07:06 05/07/20 07:06 General physical appearance General physical exam: well developed, well nourished, no distress and moderate pain Eyes Eye exam: PERRL and normal ocular movement ENT ENT exam: normal pinna, normal nares, normal mucosa and no hearing loss Head Head exam IM: Present atraumatic, normal inspection and normocephalic Neck Neck exam: no masses, no bruits, trachea midline, no lymphadenopathy and no venous distension Cardiovascular Cardiovascular exam IM: Present normal rate and rhythm, RRR, +S1 and +S2; Absent gallop, irregular rhythm and JVD Respiratory Respiratory exam: normal expansion, normal respiratory effort and clear to auscultation Abdomen Abdomen: Present soft and tender; Absent guarding and distended Integumentary Integumentary: Present no rash, no growths and no abnormal pigmentation Neurologic Neurologic: Present normal coordination, normal sensation, deep tendon reflexes and other; Absent disoriented, combative, confused and memory loss Musculoskeletal Musculoskeletal: Present normal gait and normal posture Psychiatric Psychiatric: Present oriented to time, oriented to person, oriented to place, speech is normal and memory intact Discharge Plan Patient/Caregiver Discharge Instructions Activity: increase activity as tolerated Diet: Low Fat and Consistent Carbohydrate Prescriptions: New cholestyramine-aspartame 4 gram powder 4 g PO TID Qty: 239.4 RF: 12 Continued simvastatin 20 mg tablet 20 mg PO HS Qty: 90 RF: 2 testosterone cypionate [Depo-Testosterone] 200 mg/mL oil 200 mg IM .COMPLEX Qty: 1 RF: 0 aspirin [Adult Low Dose Aspirin] 81 mg tablet,delayed release (DR/EC) 81 mg PO QDAY RF: 0 omeprazole magnesium 20 mg capsule,delayed release(DR/EC) 20 mg PO QDAY Qty: 90 RF: 2 lisinopril 10 mg tablet 10 mg PO DAILY Qty: 90 RF: 1 duloxetine 60 mg capsule,delayed release(DR/EC) 60 mg PO QAM Qty: 30 RF: 4 levothyroxine 100 mcg tablet 100 mcg PO QDAY Qty: 30 RF: 3 calcium carbonate-vitamin D3 600 mg calcium- 200 unit capsule 1 cap PO BID RF: 0 Discontinued metformin 500 mg tablet 500 mg PO QDAY Qty: 90 RF: 0 dicyclomine 20 mg tablet 20 mg PO QID Qty: 120 RF: 5 Follow Up Plan Follow up with: Kiki Kilgore DO [Primary Care Provider] - Keri Bai MD [Physician] - (contact the office for an appointment in 3 weeks) Patient Disposition: Home, Self-Care Prognosis: Good Rehab Potential: Good I certify that the patient requires SNF services: No Overall status at discharge: patient is progressing back to baseline Discharge Orders: Discharge Order (Routine); Ordered 05/07/20 Ordered By: Keri Bai Pending Pending Pending: Resuscitation Status Full Code Diet Consistent Carbohydrate Diet Start ThuMay 06 1352 Cholestyramine Resin (Questran Light) 4 gm PO BID@0700,2000 [facility] Last Admin: 05/07/20 06:39 Dose: 4 gm Documented by: Admin: 05/06/20 19:51 Dose: 4 gm Documented by: Admin: 05/06/20 10:04 Dose: 4 gm Documented by: Admin: 05/05/20 20:10 Dose: 4 gm Documented by: TERRY Duloxetine HCl (Cymbalta) 60 mg PO QAM [facility] Last Admin: 05/07/20 09:02 Dose: 60 mg Documented by: Admin: 05/06/20 08:53 Dose: 60 mg Documented by: NATHAN Hydromorphone HCl (Dilaudid) 0.5 mg IV Q2HP PRN; Protocol PRN Reason: Per Pain Protocol Last Admin: 05/07/20 13:36 Dose: 0.5 mg Documented by: Admin: 05/07/20 11:37 Dose: 0.5 mg Documented by: Admin: 05/07/20 08:33 Dose: 0.5 mg Documented by: Admin: 05/07/20 05:25 Dose: 0.5 mg Documented by: Admin: 05/06/20 18:08 Dose: 0.5 mg Documented by: Admin: 05/06/20 13:55 Dose: 0.5 mg Documented by: Admin: 05/06/20 10:56 Dose: 0.5 mg Documented by: Admin: 05/06/20 06:56 Dose: 0.5 mg Documented by: Admin: 05/06/20 00:38 Dose: 0.5 mg Documented by: Admin: 05/05/20 20:15 Dose: 0.5 mg Documented by: Admin: 05/05/20 17:49 Dose: 0.5 mg Documented by: Admin: 05/05/20 14:45 Dose: 0.5 mg Documented by: THADDEUS Sodium Chloride (Sodium Chloride 0.9%) 1,000 mls @ 125 mls/hr IV .Q8H [facility] Last Admin: 05/07/20 13:37 Dose: Not Given Documented by: Admin: 05/07/20 09:02 Dose: 125 mls/hr Documented by: Admin: 05/07/20 04:45 Dose: Not Given Documented by: Infusion: 05/07/20 00:15 Dose: 125 mls/hr Documented by: Admin: 05/06/20 21:00 Dose: Not Given Documented by: Admin: 05/06/20 16:11 Dose: 125 mls/hr Documented by: Infusion: 05/06/20 14:57 Dose: 125 mls/hr Documented by: Admin: 05/06/20 06:57 Dose: 125 mls/hr Documented by: Infusion: 05/06/20 06:49 Dose: 125 mls/hr Documented by: Admin: 05/06/20 06:37 Dose: Not Given Documented by: Admin: 05/05/20 22:49 Dose: 125 mls/hr Documented by: Infusion: 05/05/20 22:46 Dose: 125 mls/hr Documented by: Admin: 05/05/20 14:46 Dose: 125 mls/hr Documented by: THADDEUS Levothyroxine Sodium (Synthroid) 100 mcg PO QAMAC [facility] Last Admin: 05/07/20 09:03 Dose: 100 mcg Documented by: Admin: 05/06/20 06:57 Dose: 100 mcg Documented by: [email or web address] Lisinopril (Zestril) 10 mg PO DAILY [facility] Last Admin: 05/07/20 09:03 Dose: 10 mg Documented by: Admin: 05/06/20 08:53 Dose: 10 mg Documented by: [email or web address] Omeprazole (Prilosec) 20 mg PO ACB [facility] Last Admin: 05/07/20 09:02 Dose: 20 mg Documented by: Admin: 05/06/20 06:57 Dose: 20 mg Documented by: [email or web address] Promethazine HCl (Phenergan) 12.5 mg IV Q6HP PRN PRN Reason: Nausea And Vomiting Last Admin: 05/06/20 20:05 Dose: 12.5 mg Documented by: CANDELARIO Senna (Senokot) 2 tab PO HS DESIRE Last Admin: 05/06/20 19:51 Dose: Not Given Documented by: Admin: 05/05/20 20:10 Dose: Not Given Documented by: TERRY Sodium Chloride (Saline Flush) 10 ml IV Q8 DESIRE Last Admin: 05/07/20 04:45 Dose: Not Given Documented by: Admin: 05/06/20 20:05 Dose: Not Given Documented by: Admin: 05/06/20 15:17 Dose: Not Given Documented by: [email or web address] Admin: 05/06/20 06:37 Dose: Not Given Documented by: Admin: 05/05/20 23:06 Dose: Not Given Documented by: Admin: 05/05/20 14:46 Dose: 10 ml Documented by: [email or web address] Shift Summary 05/07/20 04:51 Shift Summary by Siobhan Simons The patient is on OBS status for recurrent abdominal pain and loose stools, he denies any BMs this shift and received Dilaudid 0.5 mg once for c/o neck pain and a warm pack was applied to his neck with effective symptom management. He is alert and oriented times four, his recent abdominal X-Ray was within normal limits and no obstruction was noted. He has NS infusing at 125 ml/hr, voids quantity sufficient via restroom and is up with SBA. He is tolerating a CC diet without nausea and taking PO well and prefers his Questran in applejuice. VSLeslie RA, will update shift summary report at bedside. Initialized on 05/07/20 04:51 - END OF NOTE
== END 2020-05-07 14:55 | disposition home or self-care (01) ==
LOC: MEDSUR 10:43 → ED 10:43 → MEDSUR 14:15
PROVIDERS: ADMIT Family Medicine Adult Medicine; ATTEND Family Medicine Adult Medicine